=== PATIENT | male | born 1990 | race Caucasian/White ===

== ENCOUNTER 2019-01-04 04:01 | Inpatient (IN) ==
[2019-01-04 04:22] LABS: Bilirubin,Urine Negative (Negative); Blood,Urine Negative (Negative); Clarity,Urine Clear (Clear); Color,Urine Yellow (Yellow); Glucose,Urine (UA) Normal (Normal); Ketones,Urine Negative (Negative); Leukocyte Esterase,Urine Negative (Negative); Nitrite,Urine Negative (Negative); Protein,Urine Negative (Neg-Trace); Specific Gravity,Urine 1.017 (1.010-1.025); Urobilinogen,Urine Normal (Normal)
[2019-01-04 06:02] LABS: Basophils # 0.1 K/mcL (0.0-0.2); Basophils % 0.4 %; Eosinophils # 0.3 K/mcL (0.0-0.6); Eosinophils % 2.3 %; Hematocrit 44.4 % (37.5-50.1); Hemoglobin 14.5 g/dL (12.9-16.9); Immature Granulocytes % 0.4 % (0-4); Lymphocytes # 2.2 K/mcL (0.6-4.6); Lymphocytes % 15.8 %; Mean Corpuscular HGB Conc 32.7 g/dL (31.6-35.5); Mean Corpuscular Hemoglobin 28.8 pg (28.0-33.3); Mean Corpuscular Volume 88.3 fL (83.0-100.0); Mean Platelet Volume 10.5 fL (9.4-12.4); Monocytes # 0.7 K/mcL (0.0-1.3); Monocytes % 5.3 %; Neutrophils # 10.7 K/mcL (1.6-8.9); Platelet Count 231 K/mcL (140-400); Red Blood Count 5.03 M/mcL (4.19-5.50); Red Cell Distribution Width 12.4 % (11.5-14.5); Segmented Neutrophils % 75.8 %; White Blood Count 14.1 K/mcL (4.3-11.1)
[2019-01-04] MEDS ORDERED: Ondansetron 4 MG/2 ML VIAL IM ONE (06:08)
[2019-01-04] MEDS ORDERED: Ketorolac 15 MG/ML VIAL IM ONE (06:09)
[2019-01-04] MEDS ORDERED: Isovue-370 500 ML BOTTLE IVP ONE (06:15)
--- NOTE | 2019-01-04 06:22 | Emergency Department Note ---
Disposition Clinical Impression: Abdominal pain Qualifiers: Abdominal location: lower abdomen, unspecified Qualified Code(s): R10.30 - Lower abdominal pain, unspecified Disposition: Still a Patient Condition: Good Referrals: NONE,PCP [Primary Care Provider] - Forms: ED Satisfaction Letter, Work/School Release Time of Disposition: 06:51 Abdominal Pain HPI - General Chief Complaint: ED Abdominal Pain Stated Complaint: abdominal pain/kidney pain Time Seen by Provider: 01/04/19 05:59 Source: patient Mode of arrival: ambulatory Limitations: no limitations Nursing Notes Reviewed: Yes Vital Signs Reviewed: Yes - History of Present Illness HPI Narrative: Patient is a previously healthy 28-year-old male who presents with abdominal pain for the past week. States that the pain began in both lower quadrants of his abdomen. This morning pain started radiating to his bilateral flanks and says the pain has increased in severity. Pain is constant and is worsened with food intake. Patient has been able to take fluids, but does have decreased appetite. Has tried some Tylenol and ibuprofen for the pain which has not helped. Patient did have one episode of nonbloody emesis, states that it did look red because he drank fruit punch. Has been feeling nauseous. No fevers, no chills. Denies any constipation or diarrhea. Has not noticed any dark or bloody stools. Pain Scale: 7 - Related Data Previous Rx's Medication Instructions Recorded Meclizine HCl [Verticalm] 25 mg PO DAILY PRN #7 tablet 07/02/16 Ondansetron ODT [Zofran ODT] 4 mg SL Q6HR PRN #12 tab.rapdis 07/02/16 Allergies Allergy/AdvReac Type Severity Reaction Status Date / Time [place] Allergy Anaphylaxis Uncoded 01/04/19 04:08 All systems ED: reviewed and negative except as stated. Review of Systems: As Per HPI Constitutional: Denies: fever, chills, weakness Eyes: Denies: eye pain, eye discharge, vision change ENT ED: Denies: ear pain, throat pain, dental pain Abdominal Pain PMH - Past Medical History Medical history: Reports: asthma Male Surgical History: Reports: orthopedic, other Psychiatric history: Reports: no psych history - Social History Smoking status: Never smoker Alcohol use: Reports: none Drug use: Reports: none Physical Exam GEN: Uncomfortable-appearing, no acute distress, conversant. HEENT: NC, AT. MMM. EOMI, clear conjunctiva, oropharynx clear. NECK: Supple without lymphadenopathy. No stiffness or restricted ROM. HEART: Normal rate and regular rhythm, normal S1/S1, no m/r/g LUNGS: CTAB, moving air well. No crackles or wheezes are heard. ABDOMEN: Soft, tender to palpation around the umbilicus, nondistended with good bowel sounds heard. No rebound, guarding, rigidity. BACK: No CVAT, no obvious deformity. EXTREMITIES: Without cyanosis, clubbing or edema. NEUROLOGICAL: Grossly nonfocal. Alert and oriented, moving all 4 extremities. CN not formally tested but appear grossly intact. Observed to ambulate with normal gait. Skin: Warm and dry without any rash. - General Limitations: no limitations General appearance: alert Course Course Narrative: Patient was seen and examined. Vitals afebrile and within normal limits. Exam notable for abdominal tenderness, but no peritoneal signs. CBC, CMP, CRP, lipase, liver function tests was ordered. Toradol and Zofran given for symptom control. CT abdomen and pelvis with contrast was ordered. Vital Signs Temperature 98.4 F 01/04/19 04:05 Pulse Rate 72 01/04/19 04:05 Respiratory Rate 16 01/04/19 04:05 Blood Pressure 116/82 01/04/19 04:05 O2 Sat by Pulse Oximetry 97 01/04/19 04:05 Temperature 98.4 F 01/04/19 04:05 Pulse Rate 72 01/04/19 04:05 Respiratory Rate 16 01/04/19 04:05 Blood Pressure 116/82 01/04/19 04:05 O2 Sat by Pulse Oximetry 97 01/04/19 04:05 Oxygen Delivery Oxygen Delivery Room Air Abdominal Pain - [facility] Narrative Medical decision making narrative: Patient is a 28-year-old male sent in with abdominal pain. Differential includes but is not limited to appendicitis, gastroenteritis, nephrolithiasis, UTI, cystitis, pyelonephritis, diverticulitis. Initial labs are significant for a white count of 14 with a left shift. Low suspicion for UTI, cystitis, pyelonephritis given normal urinalysis. CT abdomen and pelvis pending. At this time patient was signed out to the day team for further evaluation and management. Patient is hemodynamically stable and vitals are within normal limits. - Medical Records Medical records reviewed: Yes I reviewed the patient's medical records. - Lab Data Lab results reviewed: Yes I reviewed the patient's lab results. Result diagrams: 01/04/19 05:48 01/04/19 05:48 Lab Results 01/04/19 01/04/19 01/04/19 Range/Units 04:12 05:48 05:48 WBC 14.1 H (4.3-11.1) K/mcL RBC 5.03 (4.19-5.50) M/mcL Hgb 14.5 (12.9-16.9) g/dL Hct 44.4 (37.5-50.1) % MCV 88.3 (83.0-100.0) fL MCH 28.8 (28.0-33.3) pg MCHC 32.7 (31.6-35.5) g/dL RDW 12.4 (11.5-14.5) % Plt Count 231 (140-400) K/mcL MPV 10.5 (9.4-12.4) fL Immature Gran % 0.4 (0-4) % Seg Neutrophils % 75.8 % Lymphocytes % 15.8 % Monocytes % 5.3 % Eosinophils % 2.3 % Basophils % 0.4 % Neutrophils # 10.7 H (1.6-8.9) K/mcL Lymphocytes # 2.2 (0.6-4.6) K/mcL Monocytes # 0.7 (0.0-1.3) K/mcL Eosinophils # 0.3 (0.0-0.6) K/mcL Basophils # 0.1 (0.0-0.2) K/mcL Sodium 137 (136-145) mEq/L Potassium 4.2 (3.5-5.1) mEq/L Chloride 101 (98-107) mEq/L Carbon Dioxide 24 (23-29) mEq/L BUN 14 (6-20) mg/dL Creatinine 1.33 H (0.70-1.30) mg/dL Est GFR ( Amer) > 60 (> 60) Est GFR (Non-Af Amer) > 60 (> 60) BUN/Creatinine Ratio 11 (6-26) Glucose 116 H (70-105) mg/dL Calculated Osmolality 285 (280-300) Calcium 9.8 (8.6-10.3) mg/dL Total Bilirubin 0.6 (0.3-1.0) mg/dL Direct Bilirubin 0.1 (0.0-0.2) mg/dL Indirect Bilirubin 0.5 (0.0-1.2) mg/dL AST 20 (13-39) Units/L ALT 17 (7-52) Units/L Alkaline Phosphatase 72 (34-104) Units/L Serum Total Protein 7.9 (6.4-8.9) g/dL Albumin 4.8 (3.5-5.7) g/dL Globulin 3.1 (2.4-3.5) g/dL Albumin/Globulin Ratio 1.5 (1.1-2.2) Lipase 9 L (11-82) Units/L Urine Color Yellow (Yellow) Urine Clarity Clear (Clear) Urine pH 6.0 (5.0-8.0) pH Units Ur Specific [place] 1.017 (1.010-1.025) Urine Protein Negative (Neg-Trace) mg/dL Urine Glucose (UA) Normal (Normal) mg/dL Urine Ketones Negative (Negative) mg/dL Urine Blood Negative (Negative) Urine Nitrite Negative (Negative) Urine Bilirubin Negative (Negative) Urine Urobilinogen Normal (Normal) mg/dL Ur Leukocyte Esterase Negative (Negative) Ur Culture Indicated? NO (NO) - Radiology Data Radiology results reviewed: Yes I reviewed the patient's radiology results.
[2019-01-04 06:24] LABS: Alanine Aminotransferase 17 Units/L (7-52); Albumin 4.8 g/dL (3.5-5.7); Albumin/Globulin Ratio 1.5 (1.1-2.2); Alkaline Phosphatase 72 Units/L (34-104); Aspartate Amino Transferase 20 Units/L (13-39); BUN/Creatinine Ratio 11 (6-26); Bilirubin,Direct 0.1 mg/dL (0.0-0.2); Bilirubin,Indirect 0.5 mg/dL (0.0-1.2); Bilirubin,Total 0.6 mg/dL (0.3-1.0); Blood Urea Nitrogen 14 mg/dL (6-20); Calcium 9.8 mg/dL (8.6-10.3); Carbon Dioxide 24 mEq/L (23-29); Chloride 101 mEq/L (98-107); Globulin 3.1 g/dL (2.4-3.5); Glucose 116 mg/dL (70-105); Lipase 9 Units/L (11-82); Osmolality,Calculated 285 (280-300); Potassium 4.2 mEq/L (3.5-5.1); Sodium 137 mEq/L (136-145); Total Protein 7.9 g/dL (6.4-8.9); eGFR For African Americans > 60 (> 60); eGFR For Non-African Americans > 60 (> 60)
--- NOTE | 2019-01-04 06:46 | Emergency Department Note ---
Disposition Clinical Impression: Abdominal pain Qualifiers: Abdominal location: lower abdomen, unspecified Qualified Code(s): R10.30 - Lower abdominal pain, unspecified Disposition: Still a Patient Condition: Good Referrals: NONE,PCP [Primary Care Provider] - Forms: ED Satisfaction Letter, Work/School Release Time of Disposition: 06:54 General Adult HPI - General Chief complaint: ED Abdominal Pain Stated complaint: abdominal pain/kidney pain Time Seen by Provider: 01/04/19 05:59 Source: patient Mode of arrival: ambulatory Limitations: no limitations Nursing Notes Reviewed: Yes Vital Signs Reviewed: Yes - History of Present Illness Pain Scale: 7 - Related Data Previous Rx's Medication Instructions Recorded Meclizine HCl [Verticalm] 25 mg PO DAILY PRN #7 tablet 07/02/16 Ondansetron ODT [Zofran ODT] 4 mg SL Q6HR PRN #12 tab.rapdis 07/02/16 Allergies Allergy/AdvReac Type Severity Reaction Status Date / Time [place] Allergy Anaphylaxis Uncoded 01/04/19 04:08 Constitutional: Denies: fever, chills, weakness Eyes: Denies: eye pain, eye discharge, vision change ENT ED: Denies: ear pain, throat pain, dental pain Past Medical History - Past Medical History Medical history: Reports: asthma Psychiatric history: Reports: no psych history - Social History Smoking Status: Never smoker Smokeless Tobacco Status: No Alcohol use: Reports: none Drug use: Reports: none Physical Exam - General Limitations: no limitations General appearance: alert Course Vital Signs Temperature 98.4 F 01/04/19 04:05 Pulse Rate 72 01/04/19 04:05 Respiratory Rate 16 01/04/19 04:05 Blood Pressure 116/82 01/04/19 04:05 O2 Sat by Pulse Oximetry 97 01/04/19 04:05 Temperature 98.4 F 01/04/19 04:05 Pulse Rate 72 01/04/19 04:05 Respiratory Rate 16 01/04/19 04:05 Blood Pressure 116/82 01/04/19 04:05 O2 Sat by Pulse Oximetry 97 01/04/19 04:05 Oxygen Delivery Oxygen Delivery Room Air Medical Decision Making - Lab Data Result diagrams: 01/04/19 05:48 01/04/19 05:48 Lab Results 01/04/19 01/04/19 01/04/19 Range/Units 04:12 05:48 05:48 WBC 14.1 H (4.3-11.1) K/mcL RBC 5.03 (4.19-5.50) M/mcL Hgb 14.5 (12.9-16.9) g/dL Hct 44.4 (37.5-50.1) % MCV 88.3 (83.0-100.0) fL MCH 28.8 (28.0-33.3) pg MCHC 32.7 (31.6-35.5) g/dL RDW 12.4 (11.5-14.5) % Plt Count 231 (140-400) K/mcL MPV 10.5 (9.4-12.4) fL Immature Gran % 0.4 (0-4) % Seg Neutrophils % 75.8 % Lymphocytes % 15.8 % Monocytes % 5.3 % Eosinophils % 2.3 % Basophils % 0.4 % Neutrophils # 10.7 H (1.6-8.9) K/mcL Lymphocytes # 2.2 (0.6-4.6) K/mcL Monocytes # 0.7 (0.0-1.3) K/mcL Eosinophils # 0.3 (0.0-0.6) K/mcL Basophils # 0.1 (0.0-0.2) K/mcL Sodium 137 (136-145) mEq/L Potassium 4.2 (3.5-5.1) mEq/L Chloride 101 (98-107) mEq/L Carbon Dioxide 24 (23-29) mEq/L BUN 14 (6-20) mg/dL Creatinine 1.33 H (0.70-1.30) mg/dL Est GFR ( Amer) > 60 (> 60) Est GFR (Non-Af Amer) > 60 (> 60) BUN/Creatinine Ratio 11 (6-26) Glucose 116 H (70-105) mg/dL Calculated Osmolality 285 (280-300) Calcium 9.8 (8.6-10.3) mg/dL Total Bilirubin 0.6 (0.3-1.0) mg/dL Direct Bilirubin 0.1 (0.0-0.2) mg/dL Indirect Bilirubin 0.5 (0.0-1.2) mg/dL AST 20 (13-39) Units/L ALT 17 (7-52) Units/L Alkaline Phosphatase 72 (34-104) Units/L Serum Total Protein 7.9 (6.4-8.9) g/dL Albumin 4.8 (3.5-5.7) g/dL Globulin 3.1 (2.4-3.5) g/dL Albumin/Globulin Ratio 1.5 (1.1-2.2) Lipase 9 L (11-82) Units/L Urine Color Yellow (Yellow) Urine Clarity Clear (Clear) Urine pH 6.0 (5.0-8.0) pH Units Ur Specific [place] 1.017 (1.010-1.025) Urine Protein Negative (Neg-Trace) mg/dL Urine Glucose (UA) Normal (Normal) mg/dL Urine Ketones Negative (Negative) mg/dL Urine Blood Negative (Negative) Urine Nitrite Negative (Negative) Urine Bilirubin Negative (Negative) Urine Urobilinogen Normal (Normal) mg/dL Ur Leukocyte Esterase Negative (Negative) Ur Culture Indicated? NO (NO) Attestation Statement - Attestation Attestation: I examined this patient and my medical decision-making was reviewed with the Resident Physician. I agree with the documented findings, disposition and treatment plan as described except to the extent set forth below. Patient to the ED with abdominal pain 1 week. One episode of vomiting. On exam he has abdominal tenderness and guarding. Plan. Basic labs show leukocytosis of 14,000. CT. CT pending. Will be signed out to day shift pending CT result.
[2019-01-04] MEDS ORDERED: Piperacillin/Tazobactam 4.5 GM in 0.9 % Sodium Chloride Mini Bag 100 ML IVP ONE (07:33)
[2019-01-04] MEDS ORDERED: *HR* FentaNYL (PF) 100 MCG/2 ML VIAL IVP ONE (07:33)
--- NOTE | 2019-01-04 08:01 | Emergency Department Note ---
Disposition Clinical Impression: Abdominal pain Qualifiers: Abdominal location: lower abdomen, unspecified Qualified Code(s): R10.30 - Lower abdominal pain, unspecified Acute appendicitis Qualifiers: Acute appendicitis type: unspecified acute appendicitis type Qualified Code(s): K35.80 - Unspecified acute appendicitis Disposition: Admitted As Inpatient Condition: Good Referrals: NONE,PCP [Primary Care Provider] - Forms: ED Satisfaction Letter, Work/School Release Time of Disposition: 08:00 Abdominal Pain HPI - General Chief Complaint: ED Abdominal Pain Stated Complaint: abdominal pain/kidney pain Time Seen by Provider: 01/04/19 05:59 Source: patient Mode of arrival: ambulatory - History of Present Illness Pain Scale: 6 - Related Data Previous Rx's Medication Instructions Recorded Meclizine HCl [Verticalm] 25 mg PO DAILY PRN #7 tablet 07/02/16 Ondansetron ODT [Zofran ODT] 4 mg SL Q6HR PRN #12 tab.rapdis 07/02/16 Allergies Allergy/AdvReac Type Severity Reaction Status Date / Time [place] Allergy Anaphylaxis Uncoded 01/04/19 04:08 Constitutional: Denies: fever, chills, weakness Eyes: Denies: eye pain, eye discharge, vision change ENT ED: Denies: ear pain, throat pain, dental pain Abdominal Pain PMH - Past Medical History Medical history: Reports: asthma Male Surgical History: Reports: orthopedic, other Psychiatric history: Reports: no psych history - Social History Smoking status: Never smoker Alcohol use: Reports: none Drug use: Reports: none Physical Exam - General Limitations: no limitations General appearance: alert Course Vital Signs Temperature 98.4 F 01/04/19 04:05 Pulse Rate 72 01/04/19 04:05 Respiratory Rate 16 01/04/19 04:05 Blood Pressure 116/82 01/04/19 04:05 O2 Sat by Pulse Oximetry 97 01/04/19 04:05 Temperature 98.4 F 01/04/19 04:05 Pulse Rate 45 01/04/19 07:21 Respiratory Rate 18 01/04/19 07:21 Blood Pressure 102/54 01/04/19 07:21 O2 Sat by Pulse Oximetry 95 01/04/19 07:21 Oxygen Delivery Oxygen Delivery Room Air Abdominal Pain - MDM Narrative Medical decision making narrative: For complete note please see the previous attendings note include a full history and physical. In short this patient was signed out to me at [address] scan of the abdomen and pelvis pending. Concern was for appendicitis. CT was reported by the radiology as having acute appendicitis. Patient was started on Zosyn. We contacted Dr. Zamora for surgery. He agreed to accept him to admission and for surgical intervention. Hemodynamically the patient remained stable while he was in the emergency department. He was given pain control and antibiotics in preparation for surgical intervention. - Lab Data Result diagrams: 01/04/19 05:48 01/04/19 05:48 Lab Results 01/04/19 01/04/19 01/04/19 Range/Units 04:12 05:48 05:48 WBC 14.1 H (4.3-11.1) K/mcL RBC 5.03 (4.19-5.50) M/mcL Hgb 14.5 (12.9-16.9) g/dL Hct 44.4 (37.5-50.1) % MCV 88.3 (83.0-100.0) fL MCH 28.8 (28.0-33.3) pg MCHC 32.7 (31.6-35.5) g/dL RDW 12.4 (11.5-14.5) % Plt Count 231 (140-400) K/mcL MPV 10.5 (9.4-12.4) fL Immature Gran % 0.4 (0-4) % Seg Neutrophils % 75.8 % Lymphocytes % 15.8 % Monocytes % 5.3 % Eosinophils % 2.3 % Basophils % 0.4 % Neutrophils # 10.7 H (1.6-8.9) K/mcL Lymphocytes # 2.2 (0.6-4.6) K/mcL Monocytes # 0.7 (0.0-1.3) K/mcL Eosinophils # 0.3 (0.0-0.6) K/mcL Basophils # 0.1 (0.0-0.2) K/mcL Sodium 137 (136-145) mEq/L Potassium 4.2 (3.5-5.1) mEq/L Chloride 101 (98-107) mEq/L Carbon Dioxide 24 (23-29) mEq/L BUN 14 (6-20) mg/dL Creatinine 1.33 H (0.70-1.30) mg/dL Est GFR ( Amer) > 60 (> 60) Est GFR (Non-Af Amer) > 60 (> 60) BUN/Creatinine Ratio 11 (6-26) Glucose 116 H (70-105) mg/dL Calculated Osmolality 285 (280-300) Calcium 9.8 (8.6-10.3) mg/dL Total Bilirubin 0.6 (0.3-1.0) mg/dL Direct Bilirubin 0.1 (0.0-0.2) mg/dL Indirect Bilirubin 0.5 (0.0-1.2) mg/dL AST 20 (13-39) Units/L ALT 17 (7-52) Units/L Alkaline Phosphatase 72 (34-104) Units/L Serum Total Protein 7.9 (6.4-8.9) g/dL Albumin 4.8 (3.5-5.7) g/dL Globulin 3.1 (2.4-3.5) g/dL Albumin/Globulin Ratio 1.5 (1.1-2.2) Lipase 9 L (11-82) Units/L Urine Color Yellow (Yellow) Urine Clarity Clear (Clear) Urine pH 6.0 (5.0-8.0) pH Units Ur Specific [place] 1.017 (1.010-1.025) Urine Protein Negative (Neg-Trace) mg/dL Urine Glucose (UA) Normal (Normal) mg/dL Urine Ketones Negative (Negative) mg/dL Urine Blood Negative (Negative) Urine Nitrite Negative (Negative) Urine Bilirubin Negative (Negative) Urine Urobilinogen Normal (Normal) mg/dL Ur Leukocyte Esterase Negative (Negative) Ur Culture Indicated? NO (NO)
[2019-01-04] MEDS ORDERED: Ondansetron 4 MG/2 ML VIAL IVP PRN ×2 (08:26→13:45)
[2019-01-04] MEDS ORDERED: Morphine Sulfate Oral CONC 10 MG/0.5 ML ORAL.SYG SL PRN (08:26)
[2019-01-04] MEDS ORDERED: 0.9 % Sodium Chloride 1,000 ML IVC SCH (08:30)
--- NOTE | 2019-01-04 08:30 | Acute Care Surgery H&P ---
Date of Encounter: 01/04/19 Time of Encounter: : Assessment and Plan (1) Acute appendicitis Current Visit: Yes Status: Acute The assessment and plan as outlined above was discussed with the patient and/or family members who expressed understanding and agreement. All questions were answered. I explained to the patient that I personally reviewed the CT scan images and report and he does have evidence of acute appendicitis. We will admit him to [facility] hospitalist on IV antibiotics and proceed with a laparoscopic appendectomy. Risks and benefits have been discussed with the patient he agrees with the above plan. Qualifiers: Acute appendicitis type: with localized peritonitis Appendicitis gangrene presence: without gangrene Appendicitis perforation presence: without perforation Appendicitis abscess presence: without abscess Qualified Code(s): K35.30 - Acute appendicitis with localized peritonitis, without perforation or gangrene History of Present Illness Chief complaint: Right lower abdominal pain HPI: Mr. Simon is a 28 year old male with no significant past medical history who states that he started having right lower quadrant abdominal pain last Saturday (7 days ago). He states that the pain was intermittent and sharp stabbing pain and it worsened through a week. He thought it was some soreness were pulled muscle initially. The pain really worsened on Saturday causing him to double over and discomfort. He states that the pain also has been radiating to the right lower back. He did have nausea and vomiting today and because of his worsening symptoms he presented himself to [facility] emergency room. He denies any diarrhea or constipation and states that he normally has a bowel movement twice a day without any rectal bleeding. Past Med Surg Social Fam HX - Past Medical History Medical history: asthma Psychiatric history: no psych history - Past Surgical History Additional surgical history: Left knee arthroscopy - Social History Smoking Status: Never smoker Smokeless Tobacco Status: No Alcohol use: none Drug use: none Medications and Allergies No Known Home Drugs 01/04/19 [History] Allergy/AdvReac Type Severity Reaction Status Date / Time [place] Allergy Anaphylaxis Uncoded 01/04/19 04:08 Review of Systems All systems PM: reviewed and no additional remarkable complaints except as stated All systems PM: The remainder of the systems were reviewed and are negative General Surgery Exam Initial Vital Signs Temp Pulse Resp BP Pulse Ox 98.4 F 72 16 116/82 97 01/04/19 04:05 01/04/19 04:05 01/04/19 04:05 01/04/19 04:05 01/04/19 04:05 - Eyes PERRL, normal ocular movement - Respiratory normal expansion, normal respiratory effort, clear to auscultation - Cardiovascular Cardiovascular exam: Present: RRR, no murmurs/rubs/gallops - Abdomen Abdomen general surgery: Present: bowel sounds present, soft, tender (Pain to palpation in the RLQ. Positive Rosving's sign) - Integumentary Integumentary general surgery: Present: warm and dry - Neurologic Present: CN 2-12 grossly intact, normal coordination - Musculoskeletal Present: other (No clubbing, cyanosis, or edema) - Psychiatric Psychiatric general surgery: Present: A&Ox3, appropriate, oriented to person, or iented to place, oriented to time Results - Labs 01/04/19 05:48 01/04/19 05:48 Abnormal lab results WBC 14.1 K/mcL (4.3-11.1) H 01/04/19 05:48 Neutrophils # 10.7 K/mcL (1.6-8.9) H 01/04/19 05:48 Creatinine 1.33 mg/dL (0.70-1.30) H 01/04/19 05:48 Glucose 116 mg/dL (70-105) H 01/04/19 05:48 Lipase 9 Units/L (11-82) L 01/04/19 05:48 Diabetes panel 01/04/19 Range/Units 05:48 Sodium 137 (136-145) mEq/L Potassium 4.2 (3.5-5.1) mEq/L Chloride 101 (98-107) mEq/L Carbon Dioxide 24 (23-29) mEq/L BUN 14 (6-20) mg/dL Creatinine 1.33 H (0.70-1.30) mg/dL Glucose 116 H (70-105) mg/dL Calcium 9.8 (8.6-10.3) mg/dL AST 20 (13-39) Units/L ALT 17 (7-52) Units/L Alkaline Phosphatase 72 (34-104) Units/L Albumin 4.8 (3.5-5.7) g/dL Calcium panel 01/04/19 Range/Units 05:48 Calcium 9.8 (8.6-10.3) mg/dL Albumin 4.8 (3.5-5.7) g/dL Pituitary panel 01/04/19 Range/Units 05:48 Sodium 137 (136-145) mEq/L Potassium 4.2 (3.5-5.1) mEq/L Chloride 101 (98-107) mEq/L Carbon Dioxide 24 (23-29) mEq/L BUN 14 (6-20) mg/dL Creatinine 1.33 H (0.70-1.30) mg/dL Glucose 116 H (70-105) mg/dL Calcium 9.8 (8.6-10.3) mg/dL Adrenal panel 01/04/19 Range/Units 05:48 Sodium 137 (136-145) mEq/L Potassium 4.2 (3.5-5.1) mEq/L Chloride 101 (98-107) mEq/L Carbon Dioxide 24 (23-29) mEq/L BUN 14 (6-20) mg/dL Creatinine 1.33 H (0.70-1.30) mg/dL Glucose 116 H (70-105) mg/dL Calcium 9.8 (8.6-10.3) mg/dL Total Bilirubin 0.6 (0.3-1.0) mg/dL AST 20 (13-39) Units/L ALT 17 (7-52) Units/L Alkaline Phosphatase 72 (34-104) Units/L Albumin 4.8 (3.5-5.7) g/dL All other labs normal. - Imaging Abdominal x-ray: report reviewed CT scan - abdomen: report reviewed, image reviewed (I personally reviewed the CT scan images and report which shows a dilated appendix with surrounding inflammation consistent with acute appendicitis. No free air)
[2019-01-04] MEDS ORDERED: Pantoprazole 40 MG VIAL IVP SCH (09:00)
[2019-01-04] MEDS ORDERED: *HR* Promethazine 25 MG/ML VIAL IVP PRN (10:48)
--- NOTE | 2019-01-04 10:48 | Anesthesia Evaluation PreOp ---
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 Any Significant HX Other Medical History: Denies Any Significant HX Anesthesia History: No Prior Anesthetic Complications, Past Anesthesia Alcohol Use: occasionally Drug use: none Medications and Allergies No Known Home Drugs 01/04/19 [History] Allergy/AdvReac Type Severity Reaction Status Date / Time [place] Allergy Anaphylaxis Uncoded 01/04/19 04:08 - Meds/Allergy Pre-op Review Medications Reviewed: Yes Allergies Reviewed: Yes Beta Blockers on Current Med List: No Anesthesia Results - Labs 01/04/19 05:48 01/04/19 05:48 Anesthesia Exam Vital Signs/O2 Sat, Most Current Temp Pulse Resp BP Pulse Ox 98.5 F 55 17 104/60 100 01/04/19 09:44 01/04/19 09:44 01/04/19 09:44 01/04/19 09:44 01/04/19 09:44 Height: 5'10"/1.78m Weight: 210 lbs/95.3 kg NPO (# of Hours): 8 Pain Scale: 5 (abdomen) Pain Scale Used: Numeric (1 - 10) - HEENT Pupil (Motor): EOMI Mallampati: III Teeth: Normal Oral Opening: Greater than 3 - ENVIRONMENTAL RESEARCH PROJECT MANAGER LOC: Oriented ENVIRONMENTAL RESEARCH PROJECT MANAGER Motor: Normal RUE, Normal LUE, Normal RLE, Normal LLE, Normal Face ENVIRONMENTAL RESEARCH PROJECT MANAGER Sensory: Normal: RUE, LUE, RLE, LLE, Face - Cardiac Rhythm: Regular Murmur: None - Pulmonary Breath Sounds: bilateral Clear Respiratory Effort: Symmetrical Anesthesia Assess/Plan ASA Score: 2 Level of consciousness: Cooperative, Oriented, Tranquil Anesthetic Plan: General Monitoring Plan: Standard Monitors Recovery Plan: PACU
[2019-01-04] MEDS ORDERED: *HR* Midazolam HCl 2 MG/2 ML VIAL ONE (11:00)
[2019-01-04] MEDS ORDERED: *HR* FentaNYL (PF) 100 MCG/2 ML VIAL ONE (11:00)
[2019-01-04] MEDS ORDERED: *HR* Propofol 200 MG/20 ML VIAL IVP ONE (11:00)
[2019-01-04] MEDS ORDERED: Dexamethasone 4 MG/ML VIAL ONE (11:02)
[2019-01-04] MEDS ORDERED: Lidocaine -MPF 2% 2 ML VIAL ONE (11:02)
[2019-01-04] MEDS ORDERED: Ondansetron 4 MG/2 ML VIAL ONE (11:02)
[2019-01-04] MEDS ORDERED: *HR* Rocuronium Bromide 50 MG/5 ML VIAL ONE (11:04)
[2019-01-04] MEDS ORDERED: Lidocaine -MPF 4% 5 ML AMPUL ONE (11:04)
[2019-01-04] MEDS ORDERED: Bupivacaine/EPI 1:200k 0.5%PF 30 ML VIAL ONE (11:14)
[2019-01-04] MEDS ORDERED: Acetaminophen IV 1,000 MG/100 ML INFUS..BTL ONE (11:37)
[2019-01-04] MEDS ORDERED: Neostigmine Methylsulfate 3 MG/3 ML SYRINGE ONE (12:12)
--- NOTE | 2019-01-04 12:42 | Operative Note ---
Date of procedure: 01/04/19 Pre-op diagnosis: Acute appendicitis Post-op diagnosis: other (Ruptured appendicitis) Procedure: Laparoscopic appendectomy Anesthesia: GETA Surgeon: Ismael Zamora Was there an technical staff assistant present: No Estimated blood loss (cc): 8 Specimen: appendix Condition: stable Disposition: PACU Procedure in Detail: Date of surgery: 01/04/19 Properly identifying the patient, the patient was brought to the operating room and placed in the supine position. After proper IV sedation was achieved followed by general endotracheal intubation, the patient's abdomen was prepped and draped in a normal sterile fashion. A timeout was performed noting the patient's name and type of procedure to be performed. Half percent Marcaine with epinephrine was used to infiltrate the epidermal, dermal, and subcutaneous tissue inferior to the umbilicus. An 11 blade scalpel was used to make an incision in this area down to the rectus fascia. The rectus fascia was incised and the abdomen was entered and a 12 mm port was placed in the incision. A laparoscopic camera was placed through the port which showed no injury to the intra-abdominal organs upon entry. The abdomen was insufflated with carbon dioxide and a suprapubic 5 mm port in the left lower quadrant and a 5 mm port were placed under direct camera visualization after both of these areas were first infiltrated with half percent Marcaine solution. The patient was placed in Trendelenburg position with left side tilted downwards and the right lower quadrant was examined. The appendix appeared to be distended and thickened consistent with acute appendicitis. It was adherent to the lateral sidewalls and the appendix was grasped with a nontraumatic grasper and retracted superiorly. This revealed evidence of purulent exudate localized adjacent or between the appendix and the sidewall consistent with a perforation. Purulent exudate was immediately suctioned and a fecalith was encountered and was removed. Bovie cauterization and utilization of a laparoscopic LigaSure was used to dissect the sidewall attachments and the mesentery of the appendix away from the appendix. This dissection was carried down to the base of the appendix. The appendix was then transected with a laparoscopic LEANDER stapler. Visualization of the staple line demonstrated maintenance of hemostasis and a right lower quadrant and pelvis were copiously irrigated with normal saline solution. Of note; there was a purulent exudate fluid within the pelvis as well. Reinspection of the staple line once again demonstrated maintenance of hemostasis and all ports are then removed from the abdomen after the abdomen was desufflated. The abdominal fascia for the subumbilical incision was reapproximated with a [id number] 0 Vicryl suture. The subcutaneous tissue was reapproximated with 3-0 Vicryl suture and the epidermal and dermal layers for the remaining incisions were closed with 4-0 Monocryl sutures. Needle, sponge, and instrument counts were correct 2 and the incisions were covered with Steri-Strips and Band-Aids. The patient was aroused from IV sedation, extubated in the operating room without complication, and transported to the recovery room stable condition.
[2019-01-04] MEDS: *HR* HYDROmorphone (PF) 1 MG/ML SYRINGE IVP PRN ×2 (13:05→13:10)
--- NOTE | 2019-01-04 13:43 | Anesthesia Evaluation Post Op ---
Date of Encounter: 01/04/19 Time of Encounter: 13:42 - Vital Signs Vital Signs: Vital Signs/O2 Sat, Most Current Temp Pulse Resp BP Pulse Ox 98.3 F 68 16 108/63 97 01/04/19 13:23 01/04/19 13:23 01/04/19 13:23 01/04/19 13:23 01/04/19 13:23 - Lungs Lungs: Clear Ascult./Percussion - Airway Airway: Non-obstructed - Cardiovascular Regular Rate - Mental Status Mental Status: Alert & Oriented, Answers Appropriately - Pain Pain Scale: 2 Pain Scale used: Numeric (1 - 10) - Nausea Vomiting Nausea Vomiting: Not Present - Hydration Hydration: Ice chips, Has not voided - Discharge PostOp Status: Transfer Patient to floor
[2019-01-04] MEDS: 0.9 % Sodium Chloride 1,000 ML IVC SCH (15:50)
[2019-01-04] MEDS: Piperacillin/Tazobactam 3.375 GM in 0.9 % Sodium Chloride Mini Bag 100 ML IVPB SCH (15:50)
[2019-01-04] MEDS: *HR* Heparin 5,000 UNIT/ML VIAL SQ SCH (17:22)
[2019-01-04] MEDS: Morphine Sulfate Oral CONC 10 MG/0.5 ML ORAL.SYG SL PRN ×2 (17:22→22:38)
[2019-01-04] MEDS ORDERED: *HR* Heparin 5,000 UNIT/ML VIAL SQ SCH (18:00)
[2019-01-05] MEDS: Piperacillin/Tazobactam 3.375 GM in 0.9 % Sodium Chloride Mini Bag 100 ML IVPB SCH ×4 (00:48→23:45)
[2019-01-05] MEDS: 0.9 % Sodium Chloride 1,000 ML IVC SCH ×4 (04:42→19:53)
[2019-01-05] MEDS: *HR* Heparin 5,000 UNIT/ML VIAL SQ SCH ×2 (04:43→17:05)
[2019-01-05 06:17] LABS: Basophils % 0.1 %; Hematocrit 35.6 % (37.5-50.1); Immature Granulocytes % 0.4 % (0-4); Lymphocytes # 1.5 K/mcL (0.6-4.6); Lymphocytes % 9.1 %; Mean Corpuscular HGB Conc 32.3 g/dL (31.6-35.5); Mean Corpuscular Hemoglobin 28.6 pg (28.0-33.3); Mean Corpuscular Volume 88.6 fL (83.0-100.0); Mean Platelet Volume 10.7 fL (9.4-12.4); Monocytes # 1.2 K/mcL (0.0-1.3); Monocytes % 7.1 %; Neutrophils # 13.9 K/mcL (1.6-8.9); Platelet Count 194 K/mcL (140-400); Red Blood Count 4.02 M/mcL (4.19-5.50); Red Cell Distribution Width 12.9 % (11.5-14.5); Segmented Neutrophils % 83.3 %; White Blood Count 16.7 K/mcL (4.3-11.1)
[2019-01-05 06:24] LABS: Hemoglobin 11.5 g/dL (12.9-16.9)
[2019-01-05 06:34] LABS: BUN/Creatinine Ratio 9 (6-26); Blood Urea Nitrogen 13 mg/dL (6-20); Calcium 8.9 mg/dL (8.6-10.3); Carbon Dioxide 27 mEq/L (23-29); Chloride 102 mEq/L (98-107); Glucose 142 mg/dL (70-105); Osmolality,Calculated 289 (280-300); Potassium 4.2 mEq/L (3.5-5.1); Sodium 138 mEq/L (136-145); eGFR For African Americans > 60 (> 60); eGFR For Non-African Americans > 60 (> 60)
[2019-01-05 06:46] LABS: Platelet Estimate Normal (Normal)
[2019-01-05] MEDS: Pantoprazole 40 MG VIAL IVP SCH (07:44)
--- NOTE | 2019-01-05 10:19 | AcuteCareSurgery Progress Note ---
<Liliam Cruz - Last Filed: 01/05/19 10:15> Date of Encounter: 01/05/19 Time of Encounter: 08:00 - Assessment and Plan (1) Acute appendicitis Current Visit: Yes Status: Acute Date of procedure: 01/04/19 Pre-op diagnosis: Acute appendicitis Post-op diagnosis: other (Ruptured appendicitis) Procedure: Laparoscopic appendectomy Anesthesia: GETA Surgeon: Ismael Zamora POD #1 as above. He is recovering as expected for postoperative day one. His white blood cell count remains elevated. He is afebrile. Plan: Continue supportive care and discomfort management while awaiting full return of bowel function Continue G.I. and DVT prophylaxis Incentive spirometry 10 times every hour while awake Out of bed to chair TID, do not offer meal trays while in the bed Activity as tolerated Apply ice 20 minutes on 20 minutes off as needed continue IV antibiotics for another 24 to 48 hours repeat a.m. labs Qualifiers: Acute appendicitis type: with localized peritonitis Appendicitis gangrene presence: without gangrene Appendicitis perforation presence: without perforation Appendicitis abscess presence: without abscess Qualified Code(s): K35.30 - Acute appendicitis with localized peritonitis, without perforation or gangrene (2) ALISA (acute kidney injury) Current Visit: Yes Status: Acute Creatinine 1.33 >> 1.39 Continue IV hydration; Increase IVF to 150 ml/hr Strict intake and output Continue to monitor Avoid nephrotoxins Subjective Patient reports: no new complaints, feels better, still having pain, tolerating liquids well, voiding w/o difficulty, no flatus, no bowel movement, afebrile Objective Vital Signs - Last 8 Hours Temp Pulse Resp BP Pulse Ox 01/05/19 07:35 98.6 F 73 14 101/61 95 01/05/19 04:32 98.9 F 86 14 106/65 90 Intake and Output 01/04/19 01/05/19 01/05/19 23:59 07:59 15:59 Intake Total 580 / 880 1100 / 1100 Output Total 400 / 408 300 / 300 Balance 180 / 472 800 / 800 Intake: IV Fluids 100 / 400 1100 / 1100 0.9 % Sodium Chloride 1,000 ML 1000 / 1000 @ 100 mls/hr IVC .Q10H MARI Rx#: [id number] Zosyn 3.375 GM In 0.9 % Sodium 100 / 100 100 / 100 Chloride (Mini-Bag +) 100 ML @ 25 mls/hr IVPB Q8HR MARI Rx#: [id number] Oral 480 / 480 0 / 0 Output: Urine 400 / 400 300 / 300 Vital Signs Temp Pulse Resp BP Pulse Ox 01/05/19 07:35 98.6 F 73 14 101/61 95 01/05/19 04:32 98.9 F 86 14 106/65 90 01/04/19 19:44 99.4 F 88 14 104/70 91 01/04/19 15:51 99.2 F 88 16 105/70 94 01/04/19 15:08 98.5 F 79 14 105/67 95 01/04/19 14:29 98.7 F 71 14 109/67 95 01/04/19 13:47 99.0 F 76 14 121/74 96 01/04/19 13:23 98.3 F 68 16 108/63 97 01/04/19 13:13 64 16 106/55 95 01/04/19 13:03 70 16 104/55 95 01/04/19 12:53 97.9 F 94 14 115/59 99 Intake and Output 01/04/19 01/05/19 01/05/19 23:59 07:59 15:59 Intake Total 580 / 880 1100 / 1100 Output Total 400 / 408 300 / 300 Balance 180 / 472 800 / 800 Intake: IV Fluids 100 / 400 1100 / 1100 0.9 % Sodium Chloride 1,000 ML 1000 / 1000 @ 100 mls/hr IVC .Q10H MARI Rx#: [id number] Zosyn 3.375 GM In 0.9 % Sodium 100 / 100 100 / 100 Chloride (Mini-Bag +) 100 ML @ 25 mls/hr IVPB Q8HR MARI Rx#: [id number] Oral 480 / 480 0 / 0 Output: Urine 400 / 400 300 / 300 VITAL SIGNS: Reviewed. See [facility] GENERAL: In no apparent distress. HEENT: Normocephalic, atraumatic, pupils are equal and reactive, extraocular motions intact, oropharynx is pink and moist, there is no neck adenopathy or JVD noted. CHEST/RESPIRATORY: The thorax is free from signs of trauma. Lung sounds: clear to auscultation, normal respiratory effort CARDIAC: Regular rate and rhythm. Normal S1 and S2, without murmurs, gallops, or rubs. VASCULAR: No Edema. 2+ peripheral pulses. ABDOMEN: soft, expected postoperative tenderness, active bowel sounds INCISION: Surgical incision is clean, dry, and intact. There are no signs of cellulitis or infection noted. MUSCULOSKELETAL: Good range of motion of all major joints. Extremities without clubbing, cyanosis or edema. NEUROLOGIC EXAM: Alert and oriented x 3. Speech normal. Follows commands. PSYCHIATRIC: Mood normal. SKIN: No rash or lesions. - Labs 01/05/19 05:30 01/05/19 05:30 Diabetes panel 01/05/19 Range/Units 05:30 Sodium 138 (136-145) mEq/L Potassium 4.2 (3.5-5.1) mEq/L Chloride 102 (98-107) mEq/L Carbon Dioxide 27 (23-29) mEq/L BUN 13 (6-20) mg/dL Creatinine 1.39 H (0.70-1.30) mg/dL Glucose 142 H (70-105) mg/dL Calcium 8.9 (8.6-10.3) mg/dL Calcium panel 01/05/19 Range/Units 05:30 Calcium 8.9 (8.6-10.3) mg/dL Pituitary panel 01/05/19 Range/Units 05:30 Sodium 138 (136-145) mEq/L Potassium 4.2 (3.5-5.1) mEq/L Chloride 102 (98-107) mEq/L Carbon Dioxide 27 (23-29) mEq/L BUN 13 (6-20) mg/dL Creatinine 1.39 H (0.70-1.30) mg/dL Glucose 142 H (70-105) mg/dL Calcium 8.9 (8.6-10.3) mg/dL Adrenal panel 01/05/19 Range/Units 05:30 Sodium 138 (136-145) mEq/L Potassium 4.2 (3.5-5.1) mEq/L Chloride 102 (98-107) mEq/L Carbon Dioxide 27 (23-29) mEq/L BUN 13 (6-20) mg/dL Creatinine 1.39 H (0.70-1.30) mg/dL Glucose 142 H (70-105) mg/dL Calcium 8.9 (8.6-10.3) mg/dL Consult Discharge Plan - Plan Referrals: NONE,PCP [Primary Care Provider] - <Grant Conrad - Last Filed: 01/05/19 11:51> Date of Encounter: 01/05/19 Objective Vital Signs - Last 8 Hours Temp Pulse Resp BP Pulse Ox 01/05/19 10:40 98.4 F 73 14 100/64 91 01/05/19 07:35 98.6 F 73 14 101/61 95 01/05/19 04:32 98.9 F 86 14 106/65 90 Intake and Output 01/04/19 01/05/19 01/05/19 23:59 07:59 15:59 Intake Total 580 / 880 1100 / 1200 100 / 1200 Output Total 400 / 408 300 / 400 100 / 400 Balance 180 / 472 800 / 800 0 / 800 Intake: IV Fluids 100 / 400 1100 / 1200 100 / 1200 0.9 % Sodium Chloride 1,000 ML 1000 / 1000 @ 100 mls/hr IVC .Q10H MARI Rx#: [id number] Zosyn 3.375 GM In 0.9 % Sodium 100 / 100 100 / 200 100 / 200 Chloride (Mini-Bag +) 100 ML @ 25 mls/hr IVPB Q8HR MARI Rx#: [id number] Oral 480 / 480 0 / 0 Output: Urine 400 / 400 300 / 400 100 / 400 - Labs 01/05/19 05:30 01/05/19 05:30 Diabetes panel 01/05/19 Range/Units 05:30 Sodium 138 (136-145) mEq/L Potassium 4.2 (3.5-5.1) mEq/L Chloride 102 (98-107) mEq/L Carbon Dioxide 27 (23-29) mEq/L BUN 13 (6-20) mg/dL Creatinine 1.39 H (0.70-1.30) mg/dL Glucose 142 H (70-105) mg/dL Calcium 8.9 (8.6-10.3) mg/dL Calcium panel 01/05/19 Range/Units 05:30 Calcium 8.9 (8.6-10.3) mg/dL Pituitary panel 01/05/19 Range/Units 05:30 Sodium 138 (136-145) mEq/L Potassium 4.2 (3.5-5.1) mEq/L Chloride 102 (98-107) mEq/L Carbon Dioxide 27 (23-29) mEq/L BUN 13 (6-20) mg/dL Creatinine 1.39 H (0.70-1.30) mg/dL Glucose 142 H (70-105) mg/dL Calcium 8.9 (8.6-10.3) mg/dL Adrenal panel 01/05/19 Range/Units 05:30 Sodium 138 (136-145) mEq/L Potassium 4.2 (3.5-5.1) mEq/L Chloride 102 (98-107) mEq/L Carbon Dioxide 27 (23-29) mEq/L BUN 13 (6-20) mg/dL Creatinine 1.39 H (0.70-1.30) mg/dL Glucose 142 H (70-105) mg/dL Calcium 8.9 (8.6-10.3) mg/dL - Attending Attestation I have personally performed a face to face evaluation on this patient. I have reviewed and agree with the care plan. History and Exam by me shows: The patient is seen and evaluated on morning rounds with the acute care surgery team. He feels somewhat better than yesterday, however, he still has leukocytosis. I would recommend maintaining his IV antibiotics for perforated appendicitis with intra-abdominal pus and contamination. Continue IV antibiotics. Advance diet. Grant Conrad MD FACS
[2019-01-05] MEDS: Morphine Sulfate Oral CONC 10 MG/0.5 ML ORAL.SYG SL PRN (19:54)
[2019-01-06] MEDS: 0.9 % Sodium Chloride 1,000 ML IVC SCH ×4 (01:32→14:22)
[2019-01-06 03:23] LABS: BUN/Creatinine Ratio 14 (6-26); Blood Urea Nitrogen 16 mg/dL (6-20); Calcium 8.3 mg/dL (8.6-10.3); Carbon Dioxide 25 mEq/L (23-29); Chloride 105 mEq/L (98-107); Glucose 101 mg/dL (70-105); Osmolality,Calculated 283 (280-300); Potassium 4.3 mEq/L (3.5-5.1); Sodium 136 mEq/L (136-145); eGFR For African Americans > 60 (> 60); eGFR For Non-African Americans > 60 (> 60)
[2019-01-06] MEDS: *HR* Heparin 5,000 UNIT/ML VIAL SQ SCH ×2 (05:17→18:23)
[2019-01-06 07:28] LABS: Basophils % 0.2 %; Eosinophils % 0.1 %; Hemoglobin 10.6 g/dL (12.9-16.9); Immature Granulocytes % 0.4 % (0-4); Lymphocytes # 1.3 K/mcL (0.6-4.6); Lymphocytes % 10.6 %; Mean Corpuscular HGB Conc 32.1 g/dL (31.6-35.5); Mean Corpuscular Volume 90.2 fL (83.0-100.0); Monocytes # 0.7 K/mcL (0.0-1.3); Monocytes % 5.6 %; Neutrophils # 10.3 K/mcL (1.6-8.9); Platelet Count 169 K/mcL (140-400); Red Blood Count 3.66 M/mcL (4.19-5.50); Red Cell Distribution Width 12.9 % (11.5-14.5); Segmented Neutrophils % 83.1 %; White Blood Count 12.4 K/mcL (4.3-11.1)
[2019-01-06] MEDS: Pantoprazole 40 MG VIAL IVP SCH (08:20)
[2019-01-06] MEDS: Piperacillin/Tazobactam 3.375 GM in 0.9 % Sodium Chloride Mini Bag 100 ML IVPB SCH ×3 (08:21→23:43)
[2019-01-06] MEDS ORDERED: Isovue-370 500 ML BOTTLE IVP ONE (08:36)
[2019-01-06] MEDS ORDERED: Isovue-370 500 ML BOTTLE PO ONE (08:49)
[2019-01-06] MEDS: Morphine Sulfate Oral CONC 10 MG/0.5 ML ORAL.SYG SL PRN (11:28)
[2019-01-06] MEDS ORDERED: Acetaminophen 325 MG TABLET PO PRN (11:39)
--- NOTE | 2019-01-06 11:45 | AcuteCareSurgery Progress Note ---
<Liliam Cruz - Last Filed: 01/06/19 11:42> Date of Encounter: 01/06/19 Time of Encounter: 11:42 - Assessment and Plan (1) Acute appendicitis Current Visit: Yes Status: Acute Date of procedure: 01/04/19 Pre-op diagnosis: Acute appendicitis Post-op diagnosis: other (Ruptured appendicitis) Procedure: Laparoscopic appendectomy Anesthesia: GETA Surgeon: Ismael Zamora POD #2 as above. He is noted to continue feverw with Tmax 102.7 on 01/05/2019 and therefore a cT of the abd/pelvis with GI and IV contrast was obtained. Noted inflammatory changes, no abscess, and RLL atalectasis. We will resume his diet and have consulted RT and reviewed with bedside RN the need for aggressive pulm toileting. Will continue IVF until 1800 today given resolved ALISA and IV contrast today Plan: Continue supportive care and discomfort management while awaiting full return of bowel function Continue G.I. and DVT prophylaxis Incentive spirometry 10 times every hour while awake Out of bed to chair TID, do not offer meal trays while in the bed Activity as tolerated Apply ice 20 minutes on 20 minutes off as needed continue IV antibiotics for another 24 to 48 hours repeat a.m. labs Qualifiers: Acute appendicitis type: with localized peritonitis Appendicitis gangrene presence: without gangrene Appendicitis perforation presence: without perforation Appendicitis abscess presence: without abscess Qualified Code(s): K35.30 - Acute appendicitis with localized peritonitis, without perforation or gangrene (2) ALISA (acute kidney injury) Current Visit: Yes Status: Resolved Creatinine 1.33 >> 1.39>>1.17 Continue IV hydration as above Strict intake and output Continue to monitor Avoid nephrotoxins Subjective Patient reports: still having pain, tolerating liquids well, voiding w/o difficulty, no flatus, no bowel movement, fever Objective Vital Signs - Last 8 Hours Temp Pulse Resp BP Pulse Ox 01/06/19 11:22 98.8 F 96 16 123/71 93 01/06/19 08:27 90 01/06/19 07:40 91 01/06/19 07:29 100.5 F H 108 20 112/75 90 Intake and Output 01/05/19 01/06/19 01/06/19 23:59 07:59 15:59 Intake Total 1420 / 3620 1300 / 2300 1000 / 2300 Output Total 100 / 600 450 / 450 Balance 1320 / 3020 850 / 1850 1000 / 1850 Intake: IV Fluids 1100 / 3300 1100 / 2100 1000 / 2100 0.9 % Sodium Chloride 1,000 ML 1000 / 1000 1000 / 2000 1000 / 2000 @ 150 mls/hr IVC .Q6H40M MARI Rx #:[id number] Zosyn 3.375 GM In 0.9 % Sodium 100 / 300 100 / 100 Chloride (Mini-Bag +) 100 ML @ 25 mls/hr IVPB Q8HR MARI Rx#: [id number] Oral 320 / 320 200 / 200 Output: Urine 100 / 600 450 / 450 Other: Meal Dinner NPO Percent of Meal Consumed 0% 0% Weight 96.1 kg Patient Weight 01/06/19 23:59 Weight 96.1 kg - General physical appearance no distress - Eyes normal ocular movement - ENT atraumatic, normocephalic - Neck Neck exam: trachea midline - Respiratory other (Decreased resp effort, decreased breath sounds) - Cardiovascular Cardiovascular exam: Present: RRR - Abdomen Abdomen: Present: bowel sounds present, soft, tender (expected postoperative) - Incision Incision: Present: clean and dry, intact - Integumentary no rash - Neurologic normal sensation - Musculoskeletal normal posture - Psychiatric oriented to time, oriented to person, oriented to place, speech is normal - Labs 01/06/19 07:17 01/06/19 02:05 Diabetes panel 01/06/19 Range/Units 02:05 Sodium 136 (136-145) mEq/L Potassium 4.3 (3.5-5.1) mEq/L Chloride 105 (98-107) mEq/L Carbon Dioxide 25 (23-29) mEq/L BUN 16 (6-20) mg/dL Creatinine 1.17 (0.70-1.30) mg/dL Glucose 101 (70-105) mg/dL Calcium 8.3 L (8.6-10.3) mg/dL Calcium panel 01/06/19 Range/Units 02:05 Calcium 8.3 L (8.6-10.3) mg/dL Pituitary panel 01/06/19 Range/Units 02:05 Sodium 136 (136-145) mEq/L Potassium 4.3 (3.5-5.1) mEq/L Chloride 105 (98-107) mEq/L Carbon Dioxide 25 (23-29) mEq/L BUN 16 (6-20) mg/dL Creatinine 1.17 (0.70-1.30) mg/dL Glucose 101 (70-105) mg/dL Calcium 8.3 L (8.6-10.3) mg/dL Adrenal panel 01/06/19 Range/Units 02:05 Sodium 136 (136-145) mEq/L Potassium 4.3 (3.5-5.1) mEq/L Chloride 105 (98-107) mEq/L Carbon Dioxide 25 (23-29) mEq/L BUN 16 (6-20) mg/dL Creatinine 1.17 (0.70-1.30) mg/dL Glucose 101 (70-105) mg/dL Calcium 8.3 L (8.6-10.3) mg/dL Consult Discharge Plan - Plan Referrals: NONE,PCP [Primary Care Provider] - <Grant Conrad - Last Filed: 01/06/19 12:30> Date of Encounter: 01/06/19 Objective Vital Signs - Last 8 Hours Temp Pulse Resp BP Pulse Ox 01/06/19 11:22 98.8 F 96 16 123/71 93 01/06/19 08:27 90 01/06/19 07:40 91 01/06/19 07:29 100.5 F H 108 20 112/75 90 Intake and Output 01/05/19 01/06/19 01/06/19 23:59 07:59 15:59 Intake Total 1420 / 3620 1300 / 2300 1000 / 2300 Output Total 100 / 600 450 / 450 Balance 1320 / 3020 850 / 1850 1000 / 1850 Intake: IV Fluids 1100 / 3300 1100 / 2100 1000 / 2100 0.9 % Sodium Chloride 1,000 ML 1000 / 1000 1000 / 2000 1000 / 2000 @ 150 mls/hr IVC .Q6H40M MARI Rx #:[id number] Zosyn 3.375 GM In 0.9 % Sodium 100 / 300 100 / 100 Chloride (Mini-Bag +) 100 ML @ 25 mls/hr IVPB Q8HR MARI Rx#: [id number] Oral 320 / 320 200 / 200 Output: Urine 100 / 600 450 / 450 Other: Meal Dinner NPO Percent of Meal Consumed 0% 0% Weight 96.1 kg Patient Weight 01/06/19 23:59 Weight 96.1 kg - Labs 01/06/19 07:17 01/06/19 02:05 Diabetes panel 01/06/19 Range/Units 02:05 Sodium 136 (136-145) mEq/L Potassium 4.3 (3.5-5.1) mEq/L Chloride 105 (98-107) mEq/L Carbon Dioxide 25 (23-29) mEq/L BUN 16 (6-20) mg/dL Creatinine 1.17 (0.70-1.30) mg/dL Glucose 101 (70-105) mg/dL Calcium 8.3 L (8.6-10.3) mg/dL Calcium panel 01/06/19 Range/Units 02:05 Calcium 8.3 L (8.6-10.3) mg/dL Pituitary panel 01/06/19 Range/Units 02:05 Sodium 136 (136-145) mEq/L Potassium 4.3 (3.5-5.1) mEq/L Chloride 105 (98-107) mEq/L Carbon Dioxide 25 (23-29) mEq/L BUN 16 (6-20) mg/dL Creatinine 1.17 (0.70-1.30) mg/dL Glucose 101 (70-105) mg/dL Calcium 8.3 L (8.6-10.3) mg/dL Adrenal panel 01/06/19 Range/Units 02:05 Sodium 136 (136-145) mEq/L Potassium 4.3 (3.5-5.1) mEq/L Chloride 105 (98-107) mEq/L Carbon Dioxide 25 (23-29) mEq/L BUN 16 (6-20) mg/dL Creatinine 1.17 (0.70-1.30) mg/dL Glucose 101 (70-105) mg/dL Calcium 8.3 L (8.6-10.3) mg/dL - Attending Attestation I have personally performed a face to face evaluation on this patient. I have reviewed and agree with the care plan. History and Exam by me shows: The patient is seen and evaluated on morning rounds with the acute care surgery team. I was concerned that patient was having febrile episodes. We obtained a CAT scan of the abdomen. There is no abscess formation. He does have atelectasis of the right lower lobe. We will continue aggressive pulmonary toilet. No further CAT scan drainage or surgery is indicated. Continue IV antibiotic therapy. Grant Conrad MD FACS
[2019-01-06] MEDS: Ipratropium/Albuterol Neb 3 ML IH SCH ×2 (15:19)
[2019-01-06] MEDS: *HR* OxyCODONE Immed Rel 5 MG TABLET PO PRN ×3 (15:34→23:44)
[2019-01-07] MEDS: *HR* OxyCODONE Immed Rel 5 MG TABLET PO PRN ×3 (04:36→15:37)
[2019-01-07] MEDS: *HR* Heparin 5,000 UNIT/ML VIAL SQ SCH ×2 (04:37→17:39)
[2019-01-07 04:55] LABS: Basophils % 0.4 %; Eosinophils % 0.4 %; Hematocrit 34.6 % (37.5-50.1); Hemoglobin 11.2 g/dL (12.9-16.9); Immature Granulocytes % 0.5 % (0-4); Lymphocytes # 1.8 K/mcL (0.6-4.6); Lymphocytes % 16.6 %; Mean Corpuscular HGB Conc 32.4 g/dL (31.6-35.5); Mean Corpuscular Hemoglobin 28.7 pg (28.0-33.3); Mean Corpuscular Volume 88.7 fL (83.0-100.0); Mean Platelet Volume 10.3 fL (9.4-12.4); Monocytes # 0.7 K/mcL (0.0-1.3); Monocytes % 6.2 %; Neutrophils # 8.2 K/mcL (1.6-8.9); Platelet Count 209 K/mcL (140-400); Red Cell Distribution Width 12.9 % (11.5-14.5); Segmented Neutrophils % 75.9 %; White Blood Count 10.7 K/mcL (4.3-11.1)
[2019-01-07 05:11] LABS: BUN/Creatinine Ratio 9 (6-26); Blood Urea Nitrogen 9 mg/dL (6-20); Calcium 8.7 mg/dL (8.6-10.3); Carbon Dioxide 25 mEq/L (23-29); Chloride 101 mEq/L (98-107); Glucose 91 mg/dL (70-105); Osmolality,Calculated 276 (280-300); Potassium 3.8 mEq/L (3.5-5.1); Sodium 134 mEq/L (136-145); eGFR For African Americans > 60 (> 60); eGFR For Non-African Americans > 60 (> 60)
[2019-01-07] MEDS: Piperacillin/Tazobactam 3.375 GM in 0.9 % Sodium Chloride Mini Bag 100 ML IVPB SCH ×2 (07:35→15:37)
[2019-01-07] MEDS: Ibuprofen 800 MG TABLET PO PRN ×2 (07:38→21:03)
[2019-01-07] MEDS: Pantoprazole 40 MG VIAL IVP SCH (07:39)
--- NOTE | 2019-01-07 08:55 | AcuteCareSurgery Progress Note ---
Date of Encounter: 01/07/19 Time of Encounter: 08:51 - Assessment and Plan (1) Acute appendicitis Current Visit: Yes Status: Acute 28M POD #3 s/p lap appy 2/2 ruptured appendicitis; febrile; feels better; anorexia; diet a tolerated cont IV abx activity as tolerated serial exams in light of rupture with fevers Qualifiers: Acute appendicitis type: with localized peritonitis Appendicitis gangrene presence: without gangrene Appendicitis perforation presence: with perforation Appendicitis abscess presence: without abscess Qualified Code(s): K35.32 - Acute appendicitis with perforation and localized peritonitis, without abscess Subjective Patient reports: no new complaints, feels better, still having pain, pain is less, fever Objective Vital Signs - Last 8 Hours Temp Pulse Resp BP Pulse Ox 01/07/19 06:36 98.2 F 74 17 113/69 92 01/07/19 04:29 99.5 F 89 16 119/79 93 Intake and Output 01/06/19 01/07/19 01/07/19 23:59 07:59 15:59 Intake Total 1100 / 5500 100 / 100 Output Total 350 / 1350 550 / 550 Balance 750 / 4150 -450 / -450 Intake: IV Fluids 1100 / 5300 100 / 100 0.9 % Sodium Chloride 1,000 ML 1000 / 2000 @ 200 mls/hr IVC .Q5H MARI Rx#: [id number] Zosyn 3.375 GM In 0.9 % Sodium 100 / 300 100 / 100 Chloride (Mini-Bag +) 100 ML @ 25 mls/hr IVPB Q8HR MARI Rx#: [id number] Output: Urine 350 / 1350 550 / 550 Other: Weight 100.4 kg Patient Weight 01/07/19 23:59 Weight 100.4 kg - General physical appearance no distress - Respiratory normal expansion, normal respiratory effort - Cardiovascular Cardiovascular exam: Present: RRR - Abdomen Abdomen: Present: soft, tender (appropriately tender) - Incision Incision: Present: clean and dry, intact - Neurologic CN 2-12 grossly intact - Psychiatric oriented to time, oriented to person, oriented to place - Labs 01/07/19 04:21 01/07/19 04:21 Diabetes panel 01/07/19 Range/Units 04:21 Sodium 134 L (136-145) mEq/L Potassium 3.8 (3.5-5.1) mEq/L Chloride 101 (98-107) mEq/L Carbon Dioxide 25 (23-29) mEq/L BUN 9 (6-20) mg/dL Creatinine 0.99 (0.70-1.30) mg/dL Glucose 91 (70-105) mg/dL Calcium 8.7 (8.6-10.3) mg/dL Calcium panel 01/07/19 Range/Units 04:21 Calcium 8.7 (8.6-10.3) mg/dL Pituitary panel 01/07/19 Range/Units 04:21 Sodium 134 L (136-145) mEq/L Potassium 3.8 (3.5-5.1) mEq/L Chloride 101 (98-107) mEq/L Carbon Dioxide 25 (23-29) mEq/L BUN 9 (6-20) mg/dL Creatinine 0.99 (0.70-1.30) mg/dL Glucose 91 (70-105) mg/dL Calcium 8.7 (8.6-10.3) mg/dL Adrenal panel 01/07/19 Range/Units 04:21 Sodium 134 L (136-145) mEq/L Potassium 3.8 (3.5-5.1) mEq/L Chloride 101 (98-107) mEq/L Carbon Dioxide 25 (23-29) mEq/L BUN 9 (6-20) mg/dL Creatinine 0.99 (0.70-1.30) mg/dL Glucose 91 (70-105) mg/dL Calcium 8.7 (8.6-10.3) mg/dL Consult Discharge Plan - Plan Instructions: Laparoscopic Appendectomy (DC) Additional Instructions: General Surgical Discharge Instructions 1. No pushing, pulling, or lifting greater than 15 lbs for 2-4 weeks (depending upon procedure). 2. You may remove your dressings and shower beginning today, but no tub baths, soaking, or swimming for 2 weeks. 3. No driving for two weeks unless otherwise specified and then you may resume driving when you are off narcotics and are safe to react in a car. 4. Take ibuprofen every 8 hours for discomfort. If this does not relieve discomfort, you may take the as needed Percocet. Eat a small snack with pain medication as this will help reduce the risk of nausea. Take narcotics as directed. Do not take more narcotics then directed and do not share your narcotics with any other person. Do not drink alcohol while on narcotics. You can take the Zofran/ondansetron if needed for nausea or with a dose of narcotics to prevent nausea. 5. Take stool softeners (Colace) or a water based laxative (Miralax) while taking narcotics. You may hold for loose stools. 6. Report any fevers greater than 100.5F, increase abdominal discomfort, drainage that looks like pus, increased redness or pain at the surgical site, or any vomiting. 7. Report any pain in the calves, shortness of breath, or rapid heartbeat. 8. Follow-up in the office as directed. 9. If you were prescribed antibiotics, do not stop them without talking to your provider. Referrals: Grant Conrad MD [Partnered Physician] - 01/20/19 9:20 am Liliam Cruz CNP [Advanced Practice Nurse] - 01/16/19 10:45 am NONE,PCP [Primary Care Provider] -
[2019-01-08] MEDS: *HR* OxyCODONE Immed Rel 5 MG TABLET PO PRN (00:25)
[2019-01-08] MEDS: Piperacillin/Tazobactam 3.375 GM in 0.9 % Sodium Chloride Mini Bag 100 ML IVPB SCH ×3 (00:26→10:25)
[2019-01-08] MEDS: *HR* Heparin 5,000 UNIT/ML VIAL SQ SCH (05:46)
[2019-01-08 06:57] VITALS: BP 121/79
--- NOTE | 2019-01-08 08:49 | Discharge Summary ---
<AnthonyLiliam L - Last Filed: 01/08/19 08:47> Date of Encounter: 01/08/19 Time of Encounter: 08:47 - Discharge Diagnosis (1) Acute appendicitis Priority: Primary Status: Resolved Qualifiers: Acute appendicitis type: with localized peritonitis Appendicitis gangrene presence: without gangrene Appendicitis perforation presence: with perforation Appendicitis abscess presence: without abscess Qualified Code(s): K35.32 - Acute appendicitis with perforation and localized peritonitis, without abscess (2) ALISA (acute kidney injury) Priority: Secondary Status: Resolved General Surgery Exam Initial Vital Signs Temp Pulse Resp BP Pulse Ox 98.4 F 72 16 116/82 97 01/04/19 04:05 01/04/19 04:05 01/04/19 04:05 01/04/19 04:05 01/04/19 04:05 Vital Signs Temp Pulse Resp BP Pulse Ox 01/08/19 06:55 98.3 F 73 14 121/79 01/08/19 04:31 98.0 F 60 15 107/71 95 01/08/19 01:29 98.3 F 72 16 104/67 97 01/07/19 21:03 99.1 F 74 15 108/64 94 01/07/19 15:11 97.8 F 73 14 105/67 93 Intake and Output 01/07/19 01/08/19 01/08/19 23:59 07:59 15:59 Intake Total 580 / 1260 100 / 100 Output Total 200 / 1000 1375 / 1375 Balance 380 / 260 -1275 / -1275 Intake: IV Fluids 100 / 300 100 / 100 Zosyn 3.375 GM In 0.9 % Sodium 100 / 300 100 / 100 Chloride (Mini-Bag +) 100 ML @ 25 mls/hr IVPB Q8HR [facility] Rx#: [id number] Oral 480 / 960 0 / 0 Output: Urine 200 / 1000 1375 / 1375 Other: Weight 100.1 kg Patient Weight 01/08/19 23:59 Weight 100.1 kg VITAL SIGNS: Reviewed. See [facility] GENERAL: In no apparent distress. HEENT: Normocephalic, atraumatic, pupils are equal and reactive, extraocular motions intact, oropharynx is pink and moist, there is no neck adenopathy or JVD noted. CHEST/RESPIRATORY: The thorax is free from signs of trauma. Lung sounds: clear to auscultation, normal respiratory effort CARDIAC: Regular rate and rhythm. Normal S1 and S2, without murmurs, gallops, or rubs. VASCULAR: No Edema. 2+ peripheral pulses. ABDOMEN: soft, expected postoperative tenderness, active bowel sounds INCISION: Surgical incision is clean, dry, and intact. There are no signs of cellulitis or infection noted. MUSCULOSKELETAL: Good range of motion of all major joints. Extremities without clubbing, cyanosis or edema. NEUROLOGIC EXAM: Alert and oriented x 3. Speech normal. Follows commands. PSYCHIATRIC: Mood normal. SKIN: No rash or lesions. - Hospital Course Hospital course: Mr. Simon is a 28 year old male who presented on 01/04/2019 with acute appendicitis. He was taken to the operating room on the same day where he underwent a laparoscopic appendectomy by Dr. Zamora. He was noted to have ruptured appendicitis at that time with purulent exudate noted within the pe lvis. His hospital course was complicated by postoperative fevers within the 1st 24 hours which were attributed to atelectasis. He did have a repeat CT scan of the abdomen and pelvis on 01/06/2019 which did confirm expected postoperative fluid and findings in the abdomen as well as bilateral atelectasis. He was treated aggressively with pulmonary toileting and his symptoms improved. He is ambulating avoiding without difficulty, tolerating a diet without nausea or vomiting, vital signs are stable, and he is afebrile. We will begin discharge planning to home with a follow-up in the office in approximately 2 weeks. The patient is strongly encouraged to continue his pulmonary toileting while at home and he verbalizes understanding and adherence. - Time Spent with Patient Total time spent providing and/or coordinating discharge services: - Discharge Medications Prescriptions: New Amoxicillin/Clavulanate [Augmentin] 875 mg PO BIDWM 5 Days #10 tablet Docusate Sodium [Colace] 100 mg PO BID PRN #30 capsule PRN Reason: Contstipation Ibuprofen 800 mg PO Q8H PRN #30 tablet PRN Reason: Postsurgical pain OxyCODONE Immed Rel [Roxicodone 5 MG] 5 mg PO Q6HR PRN 5 Days #20 tablet PRN Reason: Severe Pain Home Medications: Amoxicillin/Clavulanate [Augmentin] 875 mg PO BIDWM 5 Days #10 tablet 01/08/19 [Rx] Docusate Sodium [Colace] 100 mg PO BID PRN #30 capsule 01/08/19 [Rx] Ibuprofen 800 mg PO Q8H PRN #30 tablet 01/08/19 [Rx] OxyCODONE Immed Rel [Roxicodone 5 MG] 5 mg PO Q6HR PRN 5 Days #20 tablet 01/08/19 [Rx] Allergies/Adverse Reactions: Allergy/AdvReac Type Severity Reaction Status Date / Time [place] Allergy Anaphylaxis Uncoded 01/04/19 04:08 Date of admission: 01/07/19 15:07 Primary care physician: PCP NONE Consults: 01/04/19 08:00 Consult to Surgery [CONS] Stat Consulting Provider: Acute Care Surgery Reason for Consult: appy Call Completed: Yes Discharging clinician: Grant Conrad (Yamil Cruz, [employer]ESS [employer]) Anticipated date of discharge: 01/08/19 - Impressions ITS Impressions Abdomen/Pelvis CT 01/04/19 06:15 IMPRESSION: Acute appendicitis. No perforation or fluid collection. Recommend surgical consultation. D/ / Teresa Oneill MD / Teresa Oneill MD Interpreting Provider: Teresa Oneill MD Abdomen/Pelvis CT 01/06/19 11:00 IMPRESSION: Status post appendectomy. Trace free fluid and mild wall thickening and surrounding inflammatory changes of the ascending colon and distal ileum have progressed since 01/04/2019 and may be postoperative or related to recent appendicitis. No focal fluid collection to suggest abscess. D/ / 01/06/2019 12:01:11 Manuel Murray MD / Mariela Arroyo Interpreting Provider: Manuel Murray MD - Patient Status Disposition: Home, Self-Care Condition: Good Functional capacity at discharge: independent ambulation Overall status at discharge: patient is progressing back to baseline - Discharge Instructions Instructions: Laparoscopic Appendectomy (DC) Follow Up With: Grant Conrad MD [Partnered Physician] - 01/20/19 9:20 am Liliam Cruz CNP [Advanced Practice Nurse] - 01/16/19 10:45 am NONE,PCP [Primary Care Provider] - Additional Instructions: General Surgical Discharge Instructions 1. No pushing, pulling, or lifting greater than 15 lbs for 2-4 weeks (depending upon procedure). 2. You may remove your dressings and shower beginning today, but no tub baths, soaking, or swimming for 2 weeks. 3. No driving for two weeks unless otherwise specified and then you may resume driving when you are off narcotics and are safe to react in a car. 4. Take ibuprofen every 8 hours for discomfort. If this does not relieve discomfort, you may take the as needed Percocet. Eat a small snack with pain medication as this will help reduce the risk of nausea. Take narcotics as directed. Do not take more narcotics then directed and do not share your narcotics with any other person. Do not drink alcohol while on narcotics. You can take the Zofran/ondansetron if needed for nausea or with a dose of narcotics to prevent nausea. 5. Take stool softeners (Colace) or a water based laxative (Miralax) while taking narcotics. You may hold for loose stools. 6. Report any fevers greater than 100.5F, increase abdominal discomfort, drainage that looks like pus, increased redness or pain at the surgical site, or any vomiting. 7. Report any pain in the calves, shortness of breath, or rapid heartbeat. 8. Follow-up in the office as directed. 9. If you were prescribed antibiotics, do not stop them without talking to your provider. - Diet and Activity Activity: increase activity as tolerated Diet: advance to your usual diet <Grant Conrad - Last Filed: 01/08/19 12:48> Date of Encounter: 01/08/19 General Surgery Exam Initial Vital Signs Temp Pulse Resp BP Pulse Ox 98.4 F 72 16 116/82 97 01/04/19 04:05 01/04/19 04:05 01/04/19 04:05 01/04/19 04:05 01/04/19 04:05 - Hospital Course Hospital course: Mr. Simon is a 28 year old male - Time Spent with Patient Total time spent providing and/or coordinating discharge services: Date of admission: 01/07/19 15:07 Primary care physician: PCP NONE Consults: 01/04/19 08:00 Consult to Surgery [CONS] Stat Consulting Provider: Acute Care Surgery Reason for Consult: appy Call Completed: Yes - Impressions ITS Impressions Abdomen/Pelvis CT 01/04/19 06:15 IMPRESSION: Acute appendicitis. No perforation or fluid collection. Recommend surgical consultation. D/ / Teresa Oneill MD / Teresa Oneill MD Interpreting Provider: Teresa Oneill MD Abdomen/Pelvis CT 01/06/19 11:00 IMPRESSION: Status post appendectomy. Trace free fluid and mild wall thickening and surrounding inflammatory changes of the ascending colon and distal ileum have progressed since 01/04/2019 and may be postoperative or related to recent appendicitis. No focal fluid collection to suggest abscess. D/ / 01/06/2019 12:01:11 Manuel Murray MD / Mariela Arroyo Interpreting Provider: Manuel Murray MD - Attending Attestation I have personally performed a face to face evaluation on this patient. I have reviewed and agree with the care plan. History and Exam by me shows: The patient is seen and evaluated on morning rounds with the acute care surgery team. He is afebrile. His pain is controlled. He is ready for discharge with outpatient antibiotic therapy. Follow-up care surgery clinic Grant Conrad MD FACS
[2019-01-08] MEDS: Pantoprazole 40 MG VIAL IVP SCH ×2 (10:20→10:26)
== END 2019-01-08 13:10 | disposition home or self-care (01) | DRG 339 ==
LOC: 3ANU 04:01 → EMEROOARM 04:01 → 3ANU 08:02
PROVIDERS: ADMIT Surgery; ATTEND Surgery